=== PATIENT | female | born 1965 | race Hispanic/Latino ===

== ENCOUNTER 2017-01-12 15:38 | Observation (INO) | payer MEDICAID ==
[2017-01-12 15:42] VITALS: BP 134/89; PULSE 82; RESP 18; TEMP 98.6; O2SAT 98
[2017-01-12] MEDS ORDERED: Sodium Chloride 0.9% 1,000 ML IV STA (16:17)
--- NOTE | 2017-01-12 16:42 | ED PDOC ---
HPI: Abdomen Time Seen by Provider: 01/12/17 15:45 Chief Complaint (Nursing): Abdominal Pain Chief Complaint (Provider): Abdominal Pain History Per: Patient History/Exam Limitations: no limitations Onset/Duration Of Symptoms: Days (x4 days) Additional Complaint(s): 52 y/o female presents to the emergency department with a complaint of a left- sided abdominal pain, subjective fever, chills, mild sweat, cough (chronic), and occasional sputum ongoing x4 days. Associated with watery non-bloody diarrhea about 3-4 times a day since 01/07/2017. Patient states upper and lower abdomen region of the left-side had worsened since Thursday, 01/09. Denies blood in cough, stool, or urine, pain with urination, frequency, incontinence, loss of appetite, use of antibiotics, or any recent international travel. PMD: [facility] in [place], [place] Past Medical History Reviewed: Historical Data, Nursing Documentation, Vital Signs Vital Signs: Last Vital Signs Temp 98.6 F 01/12/17 15:40 Pulse 82 01/12/17 15:40 Resp 18 01/12/17 15:40 BP 134/89 01/12/17 15:40 Pulse Ox 98 01/12/17 18:46 - Medical History PMH: Anxiety, Depression, Post Traumatic Stress Disorder - Surgical History Surgical History: No Surg Hx - Family History Family History: States: CAD - Social History Current smoker - smoking cessation education provided: Yes (Heavy Smoker >10 Cigarettes Daily) Alcohol: Social Drugs: Denies - Home Medications Home Medications: Ambulatory Orders Medication Instructions Recorded Azithromycin [Zithromax] 250 mg PO QAM #1 pkg 04/25/16 traMADol [Ultram] 50 mg PO Q6 PRN #16 tab 04/25/16 Ciprofloxacin HCl [Cipro] 500 mg PO BID #20 tab 01/12/17 Dicyclomine [Bentyl] 20 mg PO BID PRN #30 tab 01/12/17 Saccharomyces Boulardi [Florastor] 500 mg PO BID #28 cap 01/12/17 - Allergies Allergies/Adverse Reactions: Allergies Allergy/AdvReac Type Severity Reaction Status Date / Time No Known Allergies Allergy Verified 04/25/14 07:45 Review of Systems ROS Statement: Except As Marked, All Systems Reviewed And Found Negative (And as per HPI.) Constitutional: Positive for: Fever, Chills, Sweats (Mild). Negative for: Other (Loss of appetite) Respiratory: Positive for: Cough (Chronic), Sputum (Ocassional). Negative for: Hemoptysis Gastrointestinal: Positive for: Abdominal Pain (Left-sided), Diarrhea (Watery, 3 -4 times a day since Thursday. ). Negative for: Hematochezia Genitourinary Female: Negative for: Dysuria, Frequency, Incontinence, Hematuria Physical Exam - Reviewed Nursing Documentation Reviewed: Yes Vital Signs Reviewed: Yes - Physical Exam Appears: Positive for: Well, Non-toxic, No Acute Distress Head Exam: Positive for: ATRAUMATIC, NORMAL INSPECTION, NORMOCEPHALIC Skin: Positive for: Normal Color, Warm, Dry Eye Exam: Positive for: Normal appearance, EOMI Neck: Positive for: Normal, Supple Cardiovascular/Chest: Positive for: Regular Rate, Rhythm. Negative for: Murmur Respiratory: Positive for: Normal Breath Sounds. Negative for: Accessory Muscle Use, Respiratory Distress Gastrointestinal/Abdominal: Positive for: Soft, Tenderness (LUQ and LLQ tenderness). Negative for: Normal Exam, Mass, Guarding, Rebound, Other ( Negative Peters's and McBurney's sign. ) Extremity: Positive for: Normal ROM. Negative for: Pedal Edema Neurologic/Psych: Positive for: Alert, Oriented (x3), Mood/Affect (Anxious) - Laboratory Results Result Diagrams: 01/12/17 16:50 01/12/17 16:50 - ECG O2 Sat by Pulse Oximetry: 98 (RA) Pulse Ox Interpretation: Normal Medical Decision Making Medical Decision Making: Time: 16:13 Initial impression: Left-sided abdominal pain. Differential includes diverticulitis, colitis, gastroenteritis, pancreatitis, and peptic ulcer disease Initial plan: --Labs ordered --Urine DIP --PTT & Prothrombin --Pepcid 20 mg IVP --Sodium Chloride 1,000 mls/hr IV --OVA & parasite Specimen --Stool Culture --Abd & Pelvis CT --Admit to hospital routine: On ED Observation for time intensive work up and serial abd exam Scribe Attestation: Documented by Venecia Morrell, acting as a scribe for Radha Santiago MD. Provider Scribe Attestation: All medical record entries made by the Scribe were at my direction and personally dictated by me. I have reviewed the chart and agree that the record accurately reflects my personal performance of the history, physical exam, medical decision making, and the department course for this patient. I have also personally directed, reviewed, and agree with the discharge instructions and disposition. ED OBSERVATION Date of observation admission: 01/12/17 Time of observation admission: 16:18 - Observation admission statement Patient is being placed in observation because:: Abdominal pain - Goals of Observation Goals of observation are:: for abdominal pains to resolve and abd CT results. - Progress Note Progress Note: 01/12/17 17:58 --Patient is resting comfortably pending CT results. 01/12/17 18:24 CT AP FINDINGS: LOWER THORAX: No visible consolidation, pleural effusion, or pneumothorax. Small hiatal hernia/distal esophageal wall thickening. LIVER: Unremarkable. GALLBLADDER AND BILE DUCTS: Unremarkable. PANCREAS: Unremarkable. SPLEEN: Unremarkable. ADRENALS: Unremarkable. KIDNEYS AND URETERS: The kidneys enhance symmetrically. No hydronephrosis or obstructing calculus identified. VASCULATURE: No aortic aneurysm. BOWEL: Stomach is nondistended. Lack of oral contrast limits evaluation for bowel pathology. Bowel loops appear within normal limits of caliber without evidence of obstruction. APPENDIX: The appendix appears within normal limits of caliber. No secondary signs of acute appendicitis. PERITONEUM: No significant free fluid. No definite free air. LYMPH NODES: No bulky adenopathy identified. BLADDER: Unremarkable. REPRODUCTIVE: Uterus is present. BONES: No acute osseous abnormality is detected. OTHER FINDINGS: None. IMPRESSION: No acute findings identified. Incidental findings as above. 01/12/17 18:37 --Chest x-ray read by me and show no acute findings 01/12/17 18:44 dw Pt findings and plan of care. Rx for prolonged diarrhea and abdominal pain to be given. Strongly advised f/u with PMD for colonscopy/endoscopy, advised to quit tobacco , and continue regular medical care through PMD (mammographies, PAP smears, etc. ) All concerns and questions answered and pt feeling better and eager to go home. Disposition - Clinical Impression Clinical Impression: Abdominal pain, Diarrhea - Disposition Disposition: Routine/Home Disposition Time: 16:46 Condition: GOOD
[2017-01-12 16:58] LABS: BASO # 0.1 K/uL (0.0-0.2); BASO % 0.8 % (0.0-2.0); EOS # 0.1 K/uL (0.0-0.7); EOS % 1.3 % (0.0-4.0); HEMATOCRIT 37.9 % (34.0-47.0); LYMPH # 2.2 K/uL (1.0-4.3); LYMPH % 30.9 % (20.0-40.0); MEAN CELL VOLUME 92.8 fl (81.0-99.0); MEAN CORPUSCULAR HEMOGLOBIN 31.8 pg (27.0-31.0); MEAN CORPUSCULAR HGB CONC 34.3 g/dL (33.0-37.0); MEAN PLATELET VOLUME 9.4 fl (7.2-11.7); MONO # 0.4 K/uL (0.0-0.8); MONO % 5.9 % (0.0-10.0); NEUT # 4.4 K/uL (1.8-7.0); NEUT % 61.1 % (50.0-75.0); NRBC % 0.1 % (0.0-0.0); WHITE BLOOD COUNT 7.2 K/uL (4.8-10.8)
[2017-01-12 17:11] LABS: ALB/GLOB RATIO 1.5 (1.0-2.1); ALKALINE PHOSPHATASE 57 U/L (38-126); ALT/SGPT 31 U/L (9-52); AST/SGOT 24 U/L (14-36); BILIRUBIN,TOTAL 0.4 mg/dl (0.2-1.3); BLOOD UREA NITROGEN 12 mg/dl (7-17); CALCIUM 9.1 mg/dL (8.4-10.2); CARBON DIOXIDE 27 mmol/L (22-30); CHLORIDE 104 mmol/L (98-107); GFR AFRICAN-AMERICAN > 60; GLUCOSE,RANDOM 107 mg/dL (65-105); LIPASE 36 U/L (23-300); POTASSIUM 3.8 MMOL/L (3.6-5.0); SODIUM 141 mmol/l (132-148); TOTAL PROTEIN 6.5 G/DL (6.3-8.2)
[2017-01-12 17:13] LABS: PARTIAL THROMBOPLASTIN TIME 32.5 Seconds (25.6-37.1)
[2017-01-12] MEDS ORDERED: Sodium Chloride 0.9% 50 ML IV ONE (17:34)
[2017-01-12] MEDS ORDERED: Iohexol 300 100 ML IJ ONE (17:34)
--- NOTE | 2017-01-12 18:18 | CT ---
PROCEDURE: CT Abdomen and Pelvis with contrast HISTORY: LLQ pain COMPARISON: None available. TECHNIQUE: Contrast dose: 90 cc Omnipaque 300 Radiation dose: Total exam DLP = 475.81 mGy-cm. This CT exam was performed using one or more of the following dose reduction techniques: Automated exposure control, adjustment of the mA and/or kV according to patient size, and/or use of iterative reconstruction technique. FINDINGS: LOWER THORAX: No visible consolidation, pleural effusion, or pneumothorax. Small hiatal hernia/distal esophageal wall thickening. LIVER: Unremarkable. GALLBLADDER AND BILE DUCTS: Unremarkable. PANCREAS: Unremarkable. SPLEEN: Unremarkable. ADRENALS: Unremarkable. KIDNEYS AND URETERS: The kidneys enhance symmetrically. No hydronephrosis or obstructing calculus identified. VASCULATURE: No aortic aneurysm. BOWEL: Stomach is nondistended. Lack of oral contrast limits evaluation for bowel pathology. Bowel loops appear within normal limits of caliber without evidence of obstruction. APPENDIX: The appendix appears within normal limits of caliber. No secondary signs of acute appendicitis. PERITONEUM: No significant free fluid. No definite free air. LYMPH NODES: No bulky adenopathy identified. BLADDER: Unremarkable. REPRODUCTIVE: Uterus is present. BONES: No acute osseous abnormality is detected. OTHER FINDINGS: None. IMPRESSION: No acute findings identified. Incidental findings as above.
--- NOTE | 2017-01-13 09:32 | RAD ---
HISTORY: Cough COMPARISON: 11/14/2013. TECHNIQUE: Chest PA and lateral FINDINGS: LUNGS: The lungs are hyperinflated and there is peribronchial thickening with chronic changes in both lungs. No lobar pneumonia. PLEURA: No significant pleural effusion identified. No pneumothorax apparent. CARDIOVASCULAR: Normal. OSSEOUS STRUCTURES: No significant abnormalities. VISUALIZED UPPER ABDOMEN: Normal. OTHER FINDINGS: None. IMPRESSION: No active pulmonary disease. COPD.
== END 2017-01-12 18:46 | disposition home or self-care (01) ==
LOC: H.ER 15:38 → H.EROBSV 16:18
PROVIDERS: ADMIT Emergency Medicine; ATTEND Emergency Medicine
DX: R10.32 Left lower quadrant pain (principal); R10.12 Left upper quadrant pain; F41.9 Anxiety disorder, unspecified; F43.10 Post-traumatic stress disorder, unspecified; F17.210 Nicotine dependence, cigarettes, uncomplicated
CPT/HCPCS: 71020; 74177; 80053; 80324; 80345; 80346; 80349; 80353; 80358; 80361; 81025; 83690; 83992; 85025; 85610; 85730; 96374; 99284; G0378; J7040; Q9967

== ENCOUNTER 2017-04-01 02:28 | Emergency (ER) | payer MEDICAID ==
--- NOTE | 2017-04-01 12:13 | CT ---
PROCEDURE: CT HEAD WITHOUT CONTRAST HISTORY: DIZZY WEAK TRAUMA X1 COMPARISON: None available. TECHNIQUE: Axial computed tomography images were obtained through the head/brain without administration of intravenous contrast. Radiation dose: Total exam DLP = 844.91 mGy-cm. This CT exam was performed using one or more of the following dose reduction techniques: Automated exposure control, adjustment of the mA and/or kV according to patient size, and/or use of iterative reconstruction technique. FINDINGS: HEMORRHAGE: No intracranial hemorrhage. BRAIN: Alvarado-white matter differentiation is preserved. There are minimal chronic white matter changes. There is no mass, mass effect or abnormal extra-axial fluid collection. There is grade 3 x 4 x 8 mm right frontal dural calcification versus calcified meningioma. There is no territorial infarction. VENTRICLES: The ventricles are normal in size, shape and configuration. CALVARIUM: There is no calvarial fracture or extracranial soft tissue swelling. PARANASAL SINUSES: Predominantly clear. MASTOID AIR CELLS: Predominantly clear. OTHER FINDINGS: None. IMPRESSION: No acute intracranial abnormality. A preliminary report was provided by [facility].
== END 2017-04-01 05:00 | disposition home or self-care (01) ==
LOC: H.EDDOWN 02:28
DX: F07.81 Postconcussional syndrome (principal); Y04.2XXA Assault by strike against or bumped into by another person, initial encounter

== ENCOUNTER 2017-06-17 04:41 | Emergency (ER) | payer MEDICAID ==
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
[2017-06-17 05:43] LABS: BASO # 0.1 K/uL (0.0-0.2); BASO % 0.8 % (0.0-2.0); EOS % 0.1 % (0.0-4.0); HEMOGLOBIN 12.9 g/dL (12.0-16.0); LYMPH % 34.3 % (20.0-40.0); MEAN CELL VOLUME 94.6 fl (81.0-99.0); MEAN CORPUSCULAR HGB CONC 32.7 g/dL (33.0-37.0); MEAN PLATELET VOLUME 9.2 fl (7.2-11.7); MONO # 0.7 K/uL (0.0-0.8); MONO % 5.8 % (0.0-10.0); RBC 4.18 Mil/uL (3.80-5.20); RED CELL DISTRIBUTION WIDTH 14.7 % (11.5-14.5); WHITE BLOOD COUNT 11.8 K/uL (4.8-10.8)
[2017-06-17 05:55] LABS: ALB/GLOB RATIO 1.4 (1.0-2.1); ALBUMIN 4.5 g/dL (3.5-5.0); ALT/SGPT 28 U/L (9-52); AST/SGOT 27 U/L (14-36); BLOOD UREA NITROGEN 8 mg/dl (7-17); CALCIUM 9.2 mg/dL (8.4-10.2); GFR AFRICAN-AMERICAN > 60; GFR NON-AFRICAN AMERICAN > 60
[2017-06-17 07:02] LABS: SQUAMOUS EPITHIAL 1 /hpf (0-5); URINE BILIRUBIN NEGATIVE (NEGATIVE); URINE BLOOD NEGATIVE (NEGATIVE); URINE CLARITY CLEAR (Clear); URINE COLOR STRAW (YELLOW); URINE GLUCOSE (UA) NEG (Normal); URINE LEUKOCYTE ESTERASE NEG Leu/uL (Negative); URINE NITRATE NEGATIVE (NEGATIVE); URINE PROTEIN NEGATIVE (NEGATIVE); URINE UROBILINOGEN 0.2-1.0 mg/dL (0.2-1.0)
[2017-06-17 07:15] LABS: BARBITURATES, UR NEGATIVE (NEGATIVE); BENZODIAZEPINES, UR NEGATIVE (NEGATIVE); OPIATES, UR NEGATIVE (NEGATIVE); PHENCYCLIDINE, UR NEGATIVE (NEGATIVE)
--- NOTE | 2017-06-17 11:52 | ED PDOC ---
- Laboratory Results Result Diagrams: 06/17/17 05:30 06/17/17 05:30 - ECG O2 Sat by Pulse Oximetry: 98 Medical Decision Making Medical Decision Making: patient seen by crisis. cleared for discharge. Disposition Doctor Will See Patient In The: Office Counseled Patient/Family Regarding: Diagnosis, Need For Followup - Clinical Impression Clinical Impression: Alcohol intoxication, Alcohol abuse - POA Present On Arrival: None - Disposition Referrals: Angelique Serrano MD [Primary Care Provider] - Disposition: Routine/Home Disposition Time: 15:51 Condition: STABLE Instructions: Alcohol Intoxication (ED) Print Language: BHUTANESE
[2017-06-17 11:56] VITALS: BP 124/63; PULSE 81; RESP 15; TEMP 98.1; O2SAT 99
== END 2017-06-17 16:22 | disposition home or self-care (01) ==
LOC: H.ER 04:41
DX: F10.129 Alcohol abuse with intoxication, unspecified (principal); F32.9 Major depressive disorder, single episode, unspecified; F43.10 Post-traumatic stress disorder, unspecified; Z82.49 Family history of ischemic heart disease and other diseases of the circulatory system
CPT/HCPCS: 80053; 80320; 80324; 80345; 80346; 80349; 80353; 80358; 80361; 81003; 83992; 85025; 96372; 99283; J1630; J2060

== ENCOUNTER 2018-01-17 15:18 | Emergency (ER) | payer MEDICAID ==
[2018-01-17 15:45] VITALS: BP 135/80; PULSE 86; RESP 18; TEMP 97.9; O2SAT 99
--- NOTE | 2018-01-17 15:49 | ED PDOC ---
Upper Extremity Pain/Injury Time Seen by Provider: 01/17/18 15:48 Chief Complaint (Nursing): Finger,Hand,&Wrist Chief Complaint (Provider): finger injury History Per: Patient Additional Complaint(s): 53-year-old right-hand dominant female presents with laceration to right fifth digit sustained 2 days ago when patient accidentally cut finger on a piece of glass. Patient presents today with worsening pain and swelling. She is not sure of last tetanus shot. She denies fever or chills. PMD: Dr. Gavin Che Past Medical History Reviewed: Historical Data, Nursing Documentation, Vital Signs Vital Signs: Last Vital Signs Temp 97.9 F 01/17/18 15:40 Pulse 86 01/17/18 15:40 Resp 18 01/17/18 15:40 BP 135/80 01/17/18 15:40 Pulse Ox 99 01/17/18 15:40 - Medical History PMH: Anxiety, Depression, Post Traumatic Stress Disorder Denies: Sexually Transmitted Disease - Surgical History Surgical History: No Surg Hx - Family History Family History: States: CAD - Living Arrangements Living Arrangements: Alone - Social History Current smoker - smoking cessation education provided: Yes (1-2 cigarettes per day) Ex-Smoker (has not smoked in the last 12 months): Yes (former 1 ppd smoker) Alcohol: Other (abstains now, h/o abuse) Drugs: Denies - Immunization History Hx Tetanus Toxoid Vaccination: No (not sure of last tetanus) - Home Medications Home Medications: Ambulatory Orders Medication Instructions Recorded Azithromycin [Zithromax] 250 mg PO QAM #1 pkg 04/25/16 traMADol [Ultram] 50 mg PO Q6 PRN #16 tab 04/25/16 Dicyclomine [Bentyl] 20 mg PO BID PRN #30 tab 01/12/17 Saccharomyces Boulardi [Florastor] 500 mg PO BID #28 cap 01/12/17 Sulfamethoxazole/Trimethoprim 1 tab PO BID #20 tab 01/12/17 [Bactrim DS 800 mg-160 mg] Amoxicillin/Clavulanate [Augmentin 1 tab PO BID #14 tab 01/17/18 875 MG-125 MG] Clindamycin [Cleocin] 300 mg PO TID #21 cap 01/17/18 Ibuprofen [Motrin] 600 mg PO Q6 PRN #15 tab 01/17/18 - Allergies Allergies/Adverse Reactions: Allergies Allergy/AdvReac Type Severity Reaction Status Date / Time No Known Allergies Allergy Verified 03/24/17 10:42 Review of Systems ROS Statement: Except As Marked, All Systems Reviewed And Found Negative Constitutional: Negative for: Fever, Chills Skin: Positive for: Other (laceration to right 5th digit) Physical Exam - Reviewed Nursing Documentation Reviewed: Yes Vital Signs Reviewed: Yes - Physical Exam Appears: Positive for: Well Skin: Positive for: Normal Color. Negative for: Rash Eye Exam: Positive for: Normal appearance Cardiovascular/Chest: Positive for: Regular Rate, Rhythm Respiratory: Positive for: Normal Breath Sounds Extremity: Positive for: Other (1 cm laceration noted to palmar aspect of right fifth digit with mild surrounding swelling and tenderness, no active drainage, no active bleeding, decreased range of motion of affected digit secondary to pain) Neurologic/Psych: Positive for: Alert, Oriented - ECG O2 Sat by Pulse Oximetry: 99 Pulse Ox Interpretation: Normal Medical Decision Making Medical Decision Makin53 y/o with laceration to right 5th digit Plan: PO motrin Adacel IM Wound was cleansed with normal saline and Betadine, bacitracin and bandage applied. Prescriptions for Augmentin and clindamycin given along with prescription for Motrin. Patient was referred to hand specialist for follow up. Disposition - Clinical Impression Clinical Impression: Wound infection, Requires a booster tetanus - Patient ED Disposition Is Patient to be Admitted: No Counseled Patient/Family Regarding: Diagnosis, Need For Followup, Rx Given - Disposition Referrals: Marifer Hoyt MD [Staff Provider] - Disposition: Routine/Home Disposition Time: 17:02 Condition: STABLE Additional Instructions: Wash wound daily with soap and water. Keep wound clean and dry. Take prescription meds as directed. Follow-up with hand specialist in 1-2 days. Prescriptions: Amoxicillin/Clavulanate [Augmentin 875 MG-125 MG] 1 tab PO BID #14 tab Clindamycin [Cleocin] 300 mg PO TID #21 cap Ibuprofen [Motrin] 600 mg PO Q6 PRN #15 tab PRN Reason: Pain, Moderate (4-7) Instructions: Laceration Infection, Diphtheria and Tetanus Toxoids, and Acellular Pertussis Vaccine Forms: [employer] (Palauan)
[2018-01-17] MEDS ORDERED: Tdap Vaccine 0.5 ml Vial (10-64 yrs) IM ONE ×2 (16:18→16:55)
== END 2018-01-17 17:18 | disposition home or self-care (01) ==
LOC: H.ER 15:18
DX: L08.9 Local infection of the skin and subcutaneous tissue, unspecified (principal)

== ENCOUNTER 2018-02-17 19:42 | Emergency (ER) | payer MEDICAID ==
[2018-02-17 20:02] VITALS: BP 144/87; PULSE 77; RESP 16; TEMP 97.9; O2SAT 98
--- NOTE | 2018-02-17 20:14 | ED PDOC ---
History of Present Illness History of Present Illness: 53 year old female presents to the ED for evaluation of a cough productive of yellow sputum associated with chills for the past two weeks. Otherwise denies chest pain, hemoptysis, shortness of breath, sick contact, and recent travel. PMD: Angelique Serrano HPI: Influenza Time Seen by Provider: 02/17/18 20:03 Chief Complaint: Cough, Cold, Congestion Chief Complaint (Provider): Cough, Cold, Congestion History Per: Patient Exam Limitations: no limitations Onset/Duration Of Symptoms: Days (x2 weeks) Past Medical History Reviewed: Historical Data, Nursing Documentation, Vital Signs Vital Signs: Last Vital Signs Temp 97.9 F 02/17/18 19:59 Pulse 77 02/17/18 19:59 Resp 16 02/17/18 19:59 BP 144/87 02/17/18 19:59 Pulse Ox 98 02/17/18 19:59 - Medical History PMH: Anxiety, COPD, Depression, Post Traumatic Stress Disorder Denies: Diabetes, Hepatitis, HIV, HTN, Seizures, Sexually Transmitted Disease - Family History Family History: States: CAD - Social History Current smoker - smoking cessation education provided: Yes Alcohol: Occasional Drugs: Denies - Immunization History Hx Tetanus Toxoid Vaccination: No (not sure of last tetanus) - Home Medications Home Medications: Ambulatory Orders Medication Instructions Recorded Azithromycin [Zithromax] 250 mg PO QAM #1 pkg 04/25/16 traMADol [Ultram] 50 mg PO Q6 PRN #16 tab 04/25/16 Dicyclomine [Bentyl] 20 mg PO BID PRN #30 tab 01/12/17 Saccharomyces Boulardi [Florastor] 500 mg PO BID #28 cap 01/12/17 Sulfamethoxazole/Trimethoprim 1 tab PO BID #20 tab 01/12/17 [Bactrim DS 800 mg-160 mg] Amoxicillin/Clavulanate [Augmentin 1 tab PO BID #14 tab 01/17/18 875 MG-125 MG] Ibuprofen [Motrin] 600 mg PO Q6 PRN #15 tab 01/17/18 RX: Clindamycin [Cleocin] 300 mg PO TID #21 cap 01/17/18 Albuterol HFA [Ventolin HFA 90 2 puff IH [id number] PRN #1 each 02/17/18 mcg/actuation (8 g)] Benzonatate [Tessalon Perle] 100 mg PO Q8 PRN #14 capsule 02/17/18 levoFLOXacin [Levaquin] 500 mg PO DAILY #5 tab 02/17/18 - Allergies Allergies/Adverse Reactions: Allergies Allergy/AdvReac Type Severity Reaction Status Date / Time prochlorperazine Allergy SHORTNESS Verified 02/17/18 19:59 [From Compazine] OF BREATH Review of Systems ROS Statement: Except As Marked, All Systems Reviewed And Found Negative Constitutional: Positive for: Chills Cardiovascular: Negative for: Chest Pain Respiratory: Positive for: Cough (productive of yellow sputum). Negative for: Shortness of Breath, Hemoptysis Physical Exam - Reviewed Nursing Documentation Reviewed: Yes Vital Signs Reviewed: Yes - Physical Exam Appears: Positive for: No Acute Distress (speaking in full sentences) Head Exam: Positive for: ATRAUMATIC, NORMOCEPHALIC Skin: Positive for: Normal Color, Warm, Dry. Negative for: Rash Eye Exam: Positive for: Normal appearance ENT: Positive for: Normal ENT Inspection. Negative for: Pharyngeal Erythema, Tonsillar Exudate, Tonsillar Swelling Neck: Positive for: Normal, Painless ROM, Supple Cardiovascular/Chest: Positive for: Regular Rate, Rhythm Respiratory: Positive for: Normal Breath Sounds. Negative for: Respiratory Distress Neurologic/Psych: Positive for: Alert, Oriented (x3) Medical Decision Making Medical Decision Making: Time: 2009 Initial Impression: cough Initial Plan: --CXR (AP&LAT) Scribe Attestation: Documented by Luci Diaz, acting as a scribe for Dashawn Mosquera PA-C Provider Scribe Attestation: All medical record entries made by the Scribe were at my direction and personally dictated by me. I have reviewed the chart and agree that the record accurately reflects my personal performance of the history, physical exam, medical decision making, and the department course for this patient. I have also personally directed, reviewed, and agree with the discharge instructions and disposition. - ECG O2 Sat by Pulse Oximetry: 98 (RA) Pulse Ox Interpretation: Normal - Radiology X-Ray: Interpreted by Me (CXR) X-Ray Interpretation: Other (increased lung markings especially on RLL) Disposition - Clinical Impression Clinical Impression: Asthmatic bronchitis - Patient ED Disposition Is Patient to be Admitted: No - Disposition Referrals: [facility] [Outside] Disposition: Routine/Home Disposition Time: 20:37 Condition: STABLE Additional Instructions: SHREYA KAUR, thank you for letting us take care of you today. Your provider was Lowell Trejo MD and you were treated for CONGESTION. The emergency medical care you received today was directed at your acute symptoms. If you were prescribed any medication, please fill it and take as directed. It may take several days for your symptoms to resolve. Return to the Emergency Department if your symptoms worsen, do not improve, or if you have any other problems. Please contact your doctor or call one of the physicians/clinics you have been referred to that are listed on the Patient Visit Information form that is included in your discharge packet. Bring any paperwork you were given at discharge with you along with any medications you are taking to your follow up visit. Our treatment cannot replace ongoing medical care by a primary care provider outside of the emergency department. [facility] today. If you had an X-Ray or CT scan: A Radiologist will review the ED reading if any change in treatment is needed we will contact you. If you had a blood, urine, or wound culture: It will take several days for the results, if any change in treatment is needed we will contact you. If you had an STI test: It will take 48 hours for the results. Please call after 1 week if you have not heard back. Prescriptions: Albuterol HFA [Ventolin HFA 90 mcg/actuation (8 g)] 2 puff IH [id number] PRN #1 each PRN Reason: cough or wheezing Benzonatate [Tessalon Perle] 100 mg PO Q8 PRN #14 capsule PRN Reason: Cough levoFLOXacin [Levaquin] 500 mg PO DAILY #5 tab Instructions: Quitting Smoking for Older Adults, Acute Bronchitis, Adult (DC) Forms: [facility] (Singaporean)
--- NOTE | 2018-02-18 12:37 | RAD ---
Date of service: 02/17/2018 HISTORY: cough COMPARISON: Chest radiograph dated 01/12/2017. TECHNIQUE: Chest PA and lateral FINDINGS: LUNGS: No active pulmonary disease. PLEURA: No significant pleural effusion identified. No pneumothorax apparent. CARDIOVASCULAR: Normal. OSSEOUS STRUCTURES: Unchanged. VISUALIZED UPPER ABDOMEN: Normal. OTHER FINDINGS: None. IMPRESSION: No active disease.
== END 2018-02-17 20:51 | disposition home or self-care (01) ==
LOC: H.ER 19:42
DX: J45.901 Unspecified asthma with (acute) exacerbation (principal)

== ENCOUNTER 2018-02-23 09:01 | Day surgery (SDC) | payer MEDICAID ==
[2018-02-23 09:28] VITALS: RESP 20
[2018-02-23 09:36] VITALS: BMI 19.9
[2018-02-23] MEDS ORDERED: STERILE IRRIGATING SOLUTION 30 ML IR ONE (09:56)
[2018-02-23] MEDS ORDERED: Povidone Iodine 5% Opht SOLUTION ONE (09:56)
[2018-02-23] MEDS ORDERED: Lidocaine 1% w Epi 1:100,000 Inj ONE (09:56)
[2018-02-23] MEDS ORDERED: Lactated Ringer's 1,000 ML IV ONE (09:57)
[2018-02-23] MEDS ORDERED: Hyaluronidase 200 UNITS/ML VIAL ONE (09:57)
[2018-02-23] MEDS ORDERED: Midazolam 2 MG/2 ML VIAL ONE ×2 (10:26→10:52)
[2018-02-23] MEDS ORDERED: EPINEPHrine 1 mg/ml (1:1000) Inj IV ONE (10:39)
[2018-02-23] MEDS ORDERED: Tetracaine 0.5% Ophth 2 ML BOTTLE OU ONE (10:40)
[2018-02-23] MEDS ORDERED: BSS 15 ML SOL IR ONE (10:42)
[2018-02-23] MEDS ORDERED: Neomycin/Polymyxin/Bacitracin OINT 0.5OZ TP ONE (11:00)
[2018-02-23 11:43] VITALS: BP 134/76; PULSE 66; TEMP 98; O2SAT 98
--- NOTE | 2018-05-13 07:11 | OP ---
PROCEDURE DATE: 02/23/2018 PREOPERATIVE DIAGNOSIS: Juxtapunctal cyst of the right lower lid. POSTOPERATIVE DIAGNOSIS: Juxtapunctal cyst of the right lower lid. OPERATIVE FINDINGS: Juxtapunctal cyst of the right lower lid. OPERATIVE PROCEDURE: The patient was prepped and draped in the usual manner for sterile ophthalmic plastic surgery. The right lower lid margin was split and the cyst was drained and the sack of the cyst was excised. After proper debridement and hemostasis, the wound was closed with 7-0 interrupted silk suture. The patient tolerated the procedure well and was brought to the postanesthesia area with stable vital signs. Elpidio Bains MD
== END 2018-02-23 12:30 | disposition home or self-care (01) ==
LOC: H.OPSURG 09:01
PROVIDERS: ATTEND Ophthalmology
DX: H02.822 Cysts of right lower eyelid (principal); J42 Unspecified chronic bronchitis
CPT/HCPCS: 67840; 88304; 88305; J0171; J2250; J3010; J7120

== ENCOUNTER 2018-04-30 16:07 | Emergency (ER) | payer MEDICAID ==
[2018-04-30 16:07] VITALS: BMI 19.9
[2018-04-30 16:36] VITALS: BP 136/78; PULSE 73; TEMP 98.4; O2SAT 97
[2018-04-30 16:37] VITALS: RESP 20
--- NOTE | 2018-04-30 16:47 | ED PDOC ---
HPI: Influenza Time Seen by Provider: 04/30/18 16:39 Chief Complaint: Cough, Cold, Congestion Chief Complaint (Provider): Cough History Per: Patient Exam Limitations: no limitations Onset/Duration Of Symptoms: Days (3x weeks) Symptoms include: cough (green sputum). denies: fever, chest pain, rash, other (hemoptysis) Sick Contacts (Context): None Additional complaint(s):: 53 year old female presents to the ED for an evaluation of a cough productive of green sputum that has been ongoing for 3x weeks. Patient states that she was seen by her PMD 3x weeks ago, who prescribed Z-Cesar. Patient states that the cough is present only in the mornings. Patient states that she used her albuterol nebulizer last night, and currently experiences no symptoms. Patient denies having chest pain, shortness of breath, fevers (contrary to triage note), hemoptysis, rash, recent travel, and sick contacts. PMD: Angelique Serrano MD Past Medical History Reviewed: Historical Data, Nursing Documentation, Vital Signs Vital Signs: Last Vital Signs Temp 98.4 F 04/30/18 16:35 Pulse 73 04/30/18 16:35 Resp 20 04/30/18 16:35 BP 136/78 04/30/18 16:35 Pulse Ox 97 04/30/18 16:35 - Medical History PMH: Anxiety, COPD, Depression, Post Traumatic Stress Disorder Denies: Diabetes, Hepatitis, HIV, HTN, Chronic Kidney Disease, Seizures, Sexually Transmitted Disease - Surgical History Surgical History: No Surg Hx - Family History Family History: States: CAD - Social History Current smoker - smoking cessation education provided: Yes (5x cigarettes per day) Alcohol: Other (yes) Drugs: Denies - Immunization History Hx Tetanus Toxoid Vaccination: No (not sure of last tetanus) - Home Medications Home Medications: Ambulatory Orders Medication Instructions Recorded Azithromycin [Zithromax] 250 mg PO QAM #1 pkg 04/25/16 levoFLOXacin [Levaquin] 500 mg PO DAILY #5 tab 02/17/18 Clonazepam [Klonopin] 0.5 mg PO DAILY 02/23/18 Quetiapine Fumarate [Seroquel] 50 mg PO DAILY 02/23/18 Tramadol HCl [Ultram] 50 mg PO DAILY PRN 02/23/18 Benzonatate [Tessalon Perle] 100 mg PO Q8 PRN #14 capsule 04/30/18 Doxycycline Hyclate 100 mg PO BID #14 capsule 04/30/18 - Allergies Allergies/Adverse Reactions: Allergies Allergy/AdvReac Type Severity Reaction Status Date / Time prochlorperazine Allergy SHORTNESS Verified 04/30/18 16:34 [From Compazine] OF BREATH Review of Systems ROS Statement: Except As Marked, All Systems Reviewed And Found Negative Constitutional: Negative for: Fever Cardiovascular: Negative for: Chest Pain Respiratory: Positive for: Cough, Sputum (green). Negative for: Shortness of Breath, Hemoptysis Skin: Negative for: Rash Physical Exam - Reviewed Nursing Documentation Reviewed: Yes Vital Signs Reviewed: Yes - Physical Exam Appears: Positive for: Well, Non-toxic, No Acute Distress Head Exam: Positive for: ATRAUMATIC, NORMOCEPHALIC Skin: Positive for: Normal Color, Warm, Dry Eye Exam: Positive for: Normal appearance ENT: Positive for: Normal ENT Inspection (speaking in full sentences) Cardiovascular/Chest: Positive for: Regular Rate, Rhythm, Chest Non Tender Respiratory: Positive for: Normal Breath Sounds. Negative for: Respiratory Distress Neurologic/Psych: Positive for: Alert, Oriented (3x) Medical Decision Making Medical Decision Makin:39 Initial impression: 53 year old female with a cough Scribe Attestation: Documented by Sienna Murillo, acting as a scribe for Dashawn Harper Provider Scribe Attestation: All medical record entries made by the Scribe were at my direction and personally dictated by me. I have reviewed the chart and agree that the record accurately reflects my personal performance of the history, physical exam, medical decision making, and the department course for this patient. I have also personally directed, reviewed, and agree with the discharge instructions and disposition. - ECG O2 Sat by Pulse Oximetry: 97 (RA) Pulse Ox Interpretation: Normal Disposition - Clinical Impression Clinical Impression: Acute bronchitis - Patient ED Disposition Is Patient to be Admitted: No - Disposition Referrals: [facility] [Outside] Disposition: Routine/Home Disposition Time: 16:46 Condition: STABLE Additional Instructions: RETURN TO ED IMMEDIATELY IF SYMPTOMS WORSEN SHREYA KAUR, thank you for letting us take care of you today. Your provider was Collin Walden MD and you were treated for CONGESTION,BACK PAIN. The emergency medical care you received today was directed at your acute symptoms. If you were prescribed any medication, please fill it and take as directed. It may take several days for your symptoms to resolve. Return to the Emergency Department if your symptoms worsen, do not improve, or if you have any other problems. Please contact your doctor or call one of the physicians/clinics you have been referred to that are listed on the Patient Visit Information form that is included in your discharge packet. Bring any paperwork you were given at discharge with you along with any medications you are taking to your follow up visit. Our treatment cannot replace ongoing medical care by a primary care provider outside of the emergency department. Thank you for allowing the [facility] team to be part of your care today. If you had an X-Ray or CT scan: A Radiologist will review the ED reading if any change in treatment is needed we will contact you. If you had a blood, urine, or wound culture: It will take several days for the results, if any change in treatment is needed we will contact you. If you had an STI test: It will take 48 hours for the results. Please call after 1 week if you have not heard back. Prescriptions: Benzonatate [Tessalon Perle] 100 mg PO Q8 PRN #14 capsule PRN Reason: Cough Doxycycline Hyclate 100 mg PO BID #14 capsule Instructions: Acute Bronchitis, Adult (DC) Forms: [facility] (Frisian) Print Language: JAPANESE
== END 2018-04-30 16:59 | disposition home or self-care (01) ==
LOC: H.ER 16:07
DX: J20.9 Acute bronchitis, unspecified (principal); F17.210 Nicotine dependence, cigarettes, uncomplicated; J44.0 Chronic obstructive pulmonary disease with (acute) lower respiratory infection; F43.10 Post-traumatic stress disorder, unspecified

== ENCOUNTER 2018-06-10 16:04 | Emergency (ER) | payer MEDICAID ==
[2018-06-10 16:04] VITALS: BMI 19.9
[2018-06-10 16:39] VITALS: BP 142/90; PULSE 78; RESP 18; TEMP 97.3; O2SAT 98
[2018-06-10] MEDS ORDERED: Naproxen 500 MG TAB PO STA (17:01)
--- NOTE | 2018-06-10 17:04 | ED PDOC ---
HPI: CCC, URI, Sore Throat Time Seen by Provider: 06/10/18 16:46 Chief Complaint (Nursing): Cough, Cold, Congestion Chief Complaint (Provider): Cough History Per: Patient History/Exam Limitations: no limitations Onset/Duration Of Symptoms: Other (x6-8 months) Current Symptoms Are (Timing): Still Present Associated Symptoms: Chills, Cough, Sputum Additional Complaint(s): 53 year old female presents to the ED complaining of on and off cough for 6-8 months. Patient recently noticed chills and cough with blood tinged productive sputum this week. She admits to smoking and is requesting a prescription for Chantix. PMD: Dr. Villagran Past Medical History Reviewed: Historical Data, Nursing Documentation, Vital Signs Vital Signs: Last Vital Signs Temp 97.3 F L 06/10/18 16:34 Pulse 78 06/10/18 16:34 Resp 18 06/10/18 16:34 BP 142/90 06/10/18 16:34 Pulse Ox 98 06/10/18 16:34 - Medical History PMH: Anxiety, COPD, Depression, Post Traumatic Stress Disorder Denies: Diabetes, Hepatitis, HIV, HTN, Chronic Kidney Disease, Seizures, Sexually Transmitted Disease - Surgical History Surgical History: No Surg Hx - Family History Family History: States: CAD - Immunization History Hx Tetanus Toxoid Vaccination: No (not sure of last tetanus) - Home Medications Home Medications: Ambulatory Orders Medication Instructions Recorded Azithromycin [Zithromax] 250 mg PO QAM #1 pkg 04/25/16 levoFLOXacin [Levaquin] 500 mg PO DAILY #5 tab 02/17/18 Clonazepam [Klonopin] 0.5 mg PO DAILY 02/23/18 Quetiapine Fumarate [Seroquel] 50 mg PO DAILY 02/23/18 Tramadol HCl [Ultram] 50 mg PO DAILY PRN 02/23/18 Benzonatate [Tessalon Perle] 100 mg PO Q8 PRN #14 capsule 04/30/18 Doxycycline Hyclate 100 mg PO BID #14 capsule 04/30/18 Albuterol HFA [Ventolin HFA 90 2 puff IH [id number] PRN #1 inh 06/10/18 mcg/actuation (8 g)] Azithromycin [Zithromax] 250 mg PO DAILY #6 tab 06/10/18 Naproxen 375 mg PO Q8 PRN #21 tablet 06/10/18 - Allergies Allergies/Adverse Reactions: Allergies Allergy/AdvReac Type Severity Reaction Status Date / Time prochlorperazine Allergy SHORTNESS Verified 06/10/18 16:39 [From Compazine] OF BREATH Review of Systems ROS Statement: Except As Marked, All Systems Reviewed And Found Negative Constitutional: Positive for: Chills Respiratory: Positive for: Cough (with productive sputum) Physical Exam - Reviewed Nursing Documentation Reviewed: Yes Vital Signs Reviewed: Yes - Physical Exam Appears: Positive for: Non-toxic, No Acute Distress Head Exam: Positive for: ATRAUMATIC, NORMOCEPHALIC Skin: Positive for: Normal Color, Warm, Dry Eye Exam: Positive for: Normal appearance ENT: Positive for: Pharynx Is (clear) Neck: Positive for: Normal, Painless ROM Cardiovascular/Chest: Positive for: Regular Rate, Rhythm Respiratory: Positive for: Normal Breath Sounds (Clear to auscultation) Gastrointestinal/Abdominal: Positive for: Normal Exam, Soft. Negative for: Tenderness Back: Positive for: Other (Tenderness to subscapular region) Extremity: Positive for: Normal ROM Neurologic/Psych: Positive for: Alert, Oriented. Negative for: Motor/Sensory Deficits - ECG O2 Sat by Pulse Oximetry: 98 (RA) Pulse Ox Interpretation: Normal - Progress ED Course And Treament: CXR: NEGATIVE FOR INFILTRATE Medical Decision Making Medical Decision Making: Initial Plan: --Chest X-ray --Naproxen 500mg PO ------ Scribe Attestation: Documented by Doe Carver acting as a scribe for Madi KIRBY Provider Scribe Attestation: All medical record entries made by the Scribe were at my direction and personally dictated by me. I have reviewed the chart and agree that the record accurately reflects my personal performance of the history, physical exam, medical decision making, and the department course for this patient. I have also personally directed, reviewed, and agree with the discharge instructions and disposition. Disposition - Clinical Impression Clinical Impression: Bronchitis - Patient ED Disposition Is Patient to be Admitted: No - Disposition Referrals: Yohannes Rodriguez MD [Staff Provider] - Disposition: Routine/Home Disposition Time: 17:46 Condition: FAIR Prescriptions: Albuterol HFA [Ventolin HFA 90 mcg/actuation (8 g)] 2 puff IH [id number] PRN #1 inh PRN Reason: Cough Azithromycin [Zithromax] 250 mg PO DAILY #6 tab Naproxen 375 mg PO Q8 PRN #21 tablet PRN Reason: Pain, Moderate (4-7) Instructions: Acute Bronchitis, Adult (DC) Forms: [facility] ED School/Work Excuse
[2018-06-10] MEDS ORDERED: Naproxen 500 MG TAB PO ONE (17:48)
--- NOTE | 2018-06-11 12:02 | RAD ---
Date of service: 06/10/2018 HISTORY: cough COMPARISON: 02/17/2018 TECHNIQUE: Chest PA and lateral FINDINGS: LUNGS: No active pulmonary disease. PLEURA: No significant pleural effusion identified. No pneumothorax apparent. CARDIOVASCULAR: No aortic atherosclerotic calcification present. Normal cardiac size. No pulmonary vascular congestion. OSSEOUS STRUCTURES: No significant abnormalities. VISUALIZED UPPER ABDOMEN: Normal. OTHER FINDINGS: None. IMPRESSION: No active disease. No significant interval change compared to the prior examination(s).
== END 2018-06-10 18:03 | disposition home or self-care (01) ==
LOC: H.ER 16:04
DX: J40 Bronchitis, not specified as acute or chronic (principal)

== ENCOUNTER 2018-10-01 20:09 | Emergency (ER) | payer SELFPAY ==
[2018-10-01 20:10] VITALS: BMI 19.9
--- NOTE | 2018-10-01 20:53 | ED PDOC ---
HPI: Headache Time Seen by Provider: 10/01/18 20:51 Chief Complaint (Nursing): Headache Chief Complaint (Provider): headache History Per: Patient (53 y/o female h/o Anxiety/depression on wellbutrin/zoloft/xanax here with intermittent headache x 3 week left sided associated with left facial numbness by mouth 2 days ago. Denies any weakness. concerned as she had head injury 2 years ago. Unable to f/u with pmd due to insurance issues currently.) Past Medical History Reviewed: Historical Data, Nursing Documentation, Vital Signs Vital Signs: Last Vital Signs Temp 98.2 F 10/01/18 20:28 Pulse 74 10/01/18 20:28 Resp 16 10/01/18 20:28 BP 142/80 10/01/18 20:28 Pulse Ox 96 10/01/18 20:28 Primary Care Provider: Vinay Bell - Medical History PMH: Anxiety, COPD, Depression, Post Traumatic Stress Disorder Denies: Diabetes, Hepatitis, HIV, HTN, Chronic Kidney Disease, Seizures, Sexually Transmitted Disease - Family History Family History: States: CAD - Immunization History Hx Tetanus Toxoid Vaccination: No (not sure of last tetanus) - Home Medications Home Medications: Ambulatory Orders Medication Instructions Recorded Azithromycin [Zithromax] 250 mg PO QAM #1 pkg 04/25/16 levoFLOXacin [Levaquin] 500 mg PO DAILY #5 tab 02/17/18 Clonazepam [Klonopin] 0.5 mg PO DAILY 02/23/18 Quetiapine Fumarate [Seroquel] 50 mg PO DAILY 02/23/18 Tramadol HCl [Ultram] 50 mg PO DAILY PRN 02/23/18 Benzonatate [Tessalon Perle] 100 mg PO Q8 PRN #14 capsule 04/30/18 Doxycycline Hyclate 100 mg PO BID #14 capsule 04/30/18 Albuterol HFA [Ventolin HFA 90 2 puff [id number] [id number] PRN #1 inh 06/10/18 mcg/actuation (8 g)] Azithromycin [Zithromax] 250 mg PO DAILY #6 tab 06/10/18 Naproxen 375 mg PO Q8 PRN #21 tablet 06/10/18 - Allergies Allergies/Adverse Reactions: Allergies Allergy/AdvReac Type Severity Reaction Status Date / Time prochlorperazine Allergy SHORTNESS Verified 10/01/18 20:28 [From Compazine] OF BREATH Review of Systems ROS Statement: Except As Marked, All Systems Reviewed And Found Negative Physical Exam - Reviewed Nursing Documentation Reviewed: Yes Vital Signs Reviewed: Yes - Physical Exam Appears: Positive for: Well, Non-toxic, No Acute Distress Head Exam: Positive for: ATRAUMATIC, NORMAL INSPECTION, NORMOCEPHALIC Skin: Positive for: Normal Color, Warm, DRY Eye Exam: Positive for: EOMI, Normal appearance, PERRL ENT: Positive for: Normal ENT Inspection Neck: Positive for: Normal, Painless ROM Cardiovascular/Chest: Positive for: Regular Rate, Rhythm Respiratory: Positive for: CNT, Normal Breath Sounds Gastrointestinal/Abdominal: Positive for: Normal Exam, Soft Back: Positive for: Normal Inspection Extremity: Positive for: Normal ROM Neurological/Psych: Positive for: Awake, Alert, Normal Tone - Laboratory Results Result Diagrams: 10/01/18 21:21 10/01/18 21:21 - ECG O2 Sat by Pulse Oximetry: 96 Medical Decision Making Medical Decision Makin:24 CT Head FINDINGS: BRAIN No acute intraparenchymal hemorrhage. No mass lesion. No CT evidence for acute territorial infarct. No midline shift or extra-axial collections. VENTRICLES: No hydrocephalus. ORBITS: The orbits are unremarkable. SINUSES AND MASTOIDS: The paranasal sinuses and mastoid air cells are clear. BONES: No fracture. SOFT TISSUES: Unremarkable. IMPRESSION: No acute intracranial abnormality. Disposition - Clinical Impression Clinical Impression: Headache - Patient ED Disposition Is Patient to be Admitted: No - Disposition Referrals: [facility] [Outside] Disposition: Routine/Home Disposition Time: 21:49 Condition: FAIR Instructions: Headache, Adult
[2018-10-01 21:33] LABS: BASO # 0.1 K/uL (0.0-0.2); BASO % 0.6 % (0.0-2.0); EOS # 0.1 K/uL (0.0-0.7); EOS % 1.2 % (0.0-4.0); HEMOGLOBIN 12.6 g/dL (12.0-16.0); LYMPH # 3.1 K/uL (1.0-4.3); MEAN CORPUSCULAR HEMOGLOBIN 30.6 pg (27.0-31.0); MEAN CORPUSCULAR HGB CONC 33.2 g/dL (33.0-37.0); MEAN PLATELET VOLUME 9.8 fl (7.2-11.7); MONO # 0.6 K/uL (0.0-0.8); MONO % 6.6 % (0.0-10.0); NEUT # 5.1 K/uL (1.8-7.0); NEUT % 56.6 % (50.0-75.0); NRBC % 0.1 % (0.0-0.0); RBC 4.13 Mil/uL (3.80-5.20); RED CELL DISTRIBUTION WIDTH 13.6 % (11.5-14.5)
[2018-10-01 21:34] LABS: BLOOD UREA NITROGEN 13 mg/dl (7-17); GFR NON-AFRICAN AMERICAN > 60
[2018-10-01 22:45] VITALS: BP 132/76; PULSE 78; RESP 18; TEMP 98; O2SAT 99
--- NOTE | 2018-10-02 14:42 | CT ---
Date of service: 10/01/2018 PROCEDURE: CT HEAD WITHOUT CONTRAST. HISTORY: left sided headache COMPARISON: Unenhanced head CT 04/01/2017. TECHNIQUE: Axial computed tomography images were obtained through the head/brain without intravenous contrast. Radiation dose: Total exam DLP = 770.49 mGy-cm. This CT exam was performed using one or more of the following dose reduction techniques: Automated exposure control, adjustment of the mA and/or kV according to patient size, and/or use of iterative reconstruction technique. FINDINGS: HEMORRHAGE: No intracranial hemorrhage. BRAIN: Normal giles-white matter differentiation and density are appreciated throughout the cerebrum and cerebellum with the brainstem appearing unremarkable as well. There is no mass effect. There is no suspicious extra-axial fluid collection and the midline brain anatomy appears diffusely unremarkable. VENTRICLES: Unremarkable. No hydrocephalus. CALVARIUM: Unremarkable. PARANASAL SINUSES: Unremarkable as visualized. No significant inflammatory changes. MASTOID AIR CELLS: Unremarkable as visualized. No inflammatory changes. OTHER FINDINGS: None. IMPRESSION: Stable, Unremarkable unenhanced head CT. Concordant preliminary report from Yolanda, 10/01/2018, 9:24 p.m..
== END 2018-10-01 22:25 | disposition home or self-care (01) ==
LOC: H.ER 20:09
DX: R51 Headache (principal); Z86.59 Personal history of other mental and behavioral disorders; F43.10 Post-traumatic stress disorder, unspecified; J44.9 Chronic obstructive pulmonary disease, unspecified; Z79.899 Other long term (current) drug therapy; Z82.49 Family history of ischemic heart disease and other diseases of the circulatory system; Z88.8 Allergy status to other drugs, medicaments and biological substances